=== PATIENT | male | born 1955 | race Caucasian/White ===

== ENCOUNTER 2020-07-19 17:32 | Emergency (ER) | payer OTHER, SELFPAY ==
--- NOTE | 2020-07-19 17:37 | DI.RAD.S_ITS ---
PROCEDURE: XR HAND LT MIN 3V INDICATIONS: part of fish hook stuck under the skin TECHNIQUE: 3 views of the hand(s) acquired. COMPARISON: None. FINDINGS: Bones: No fractures or dislocations. Carpal bones are normally aligned. No suspicious bony lesions. Age-appropriate bony degenerative changes are seen. Soft tissues: No suspicious soft tissue calcifications. There is a broken fishhook seen in the interspace between the 1st and 2nd metacarpals, measuring at least 8 mm. IMPRESSION: Broken fishhook seen within the interspace between the 1st and 2nd metacarpals. Dictated by: Abram Pizarro M.D. on 07/19/2020 at 16:53 Approved by: Abram Pizarro M.D. on 07/19/2020 at 16:54
[2020-07-19 17:39] VITALS: BP 155/89; PULSE 76; RESP 18; TEMP 36.9; O2SAT 96; BMI 26.1
--- NOTE | 2020-07-19 18:12 | ED.GENADULT ---
HPI - General Adult General Chief complaint: Extremity Injury, Upper Stated complaint: fishhook in hand Time Seen by Provider: 07/19/20 17:34 Source: patient and family Mode of arrival: Ambulatory Limitations: no limitations History of Present Illness HPI narrative: Patient is a 64-year-old male here for evaluation of a fishhook in his left hand. Patient states he was fishing earlier today when he had a fish on the line and as he was trying to remove the hook from the fissures mouth it flopped around and the other hooks on the lower came back and got caught in his hand. He was able to remove 1 of the hooks. He used a pair of wire cutters to cut the other fishhook off however he stated that then went into his hand and he was unable to remove it. Related Data Allergies Allergy/AdvReac Type Severity Reaction Status Date / Time No Known Drug Allergies Allergy Verified 07/19/20 17:39 Review of Systems Musculoskeletal Comments: [place] in left hand Integumentary/Breasts Comments: Puncture wound left hand Neurologic Neurologic: Reports system reviewed and no additional complaints, except as documented Hematologic/Lymphatic On Anticoagulants: No Patient History Medical History Healthy adult Social History Smoking Status: Never smoker Smoking Status: Never smoker alcohol intake frequency: a few times a month Substance Use Type: does not use Exam Initial Vital Signs Initial Vital Signs: Vital Signs Temperature 98.5 F 07/19/20 17:39 Pulse Rate 76 07/19/20 17:39 Respiratory Rate 18 07/19/20 17:39 Blood Pressure 155/89 H 07/19/20 17:39 Pulse Oximetry 96 07/19/20 17:39 HENPR Head: normal to inspection and normocephalic Cardio Pulses: radial pulses present on the left Skin Other: Patient with a small puncture wound in the soft tissue of the left hand between the thumb and index finger. Neuro General: patient alert and patient awake Extrem General: normal to inspection and capillary refill normal Psych Appearance: grossly normal and well kempt Procedures Foreign Body OTHER Time Out Performed: yes Site: left and hand Description of foreign body: fish hook Sedation/Analgesia: none and other (Buffered lidocaine) Technique: manual removal and incision made to facilitate removal Confirmed by:: direct visualization Complications: none Post-procedure exam: awake, alert Neurovascular: normal distal pulse and normal capillary fill Course Orders Ordered: ED Orders 07/19/20 17:37 XR hand LT min 3V Stat Discontinued Medications Bacitracin (Bacitracin Oint 0.9 Gm Pckt) 1 applic TOP NOW ONE Stop: 07/19/20 18:38 Last Admin: 07/19/20 18:40 Dose: 1 applic Documented by: MAGUE Lidocaine/Sodium Bicarbonate (Lido 1%/Sod Bicarb 8.4% (10ml) 10 Ml Syringe) 10 ml INJ NOW ONE Stop: 07/19/20 18:11 Last Admin: 07/19/20 18:15 Dose: 10 ml Documented by: MAGUE Vital Signs Vital signs: Vital Signs - 8 hr 07/19/20 17:39 Temperature 98.5 F Pulse Rate 76 Respiratory Rate 18 Blood Pressure 155/89 H Pulse Oximetry 96 Medical Decision Making Imaging Data Extremity x-ray #1: Radiologist's Impression: [address] [id number] ReportSigned Patient: Junior MckinleyMR#: [id number]: [id number]:[id number]/Sex: 64 / MDate of Service: 07/19/20Loc: EDAccession Number: [id number] Procedure: XR hand LT min 3V Ordering Provider: Adalberto Lama D.O. PROCEDURE: XR HAND LT MIN 3V INDICATIONS: part of fish hook stuck under the skin TECHNIQUE: 3 views of the hand(s) acquired. COMPARISON: None. FINDINGS: Bones: No fractures or dislocations. Carpal bones are normally aligned. No suspicious bony lesions. Age-appropriate bony degenerative changes are seen. Soft tissues: No suspicious soft tissue calcifications. There is a broken fishhook seen in the interspace between the 1st and 2nd metacarpals, measuring at least 8 mm. IMPRESSION: Broken fishhook seen within the interspace between the 1st and 2nd metacarpals. Dictated by: Abram Pizarro M.D. on 07/19/2020 at 16:53 Approved by: Abram Pizarro M.D. on 07/19/2020 at 16:54 [facility] Narrative Medical decision making narrative: Fish hook was easily removed after local anesthesia. It was removed intact. Will hold on any antibiotics. He was given care instructions and return precautions. He expressed understanding and agreement. Discharge Plan Departure Patient Disposition: Home Clinical Impression: Foreign body hand Activity Restrictions/Additional Instructions: You can keep the area covered with a antibiotic ointment and also at bandage. You can wash your hands like normal but I recommend do not soak your hand anything until the wound heals. Contact your primary provider for follow-up. Return to the emergency department for any new or worsening symptoms Referrals: London Chávez MD [Primary Care Provider] -
[2020-07-19] MEDS: LIDO 1%/SOD BICARB 8.4% (10ML) 10 ML SYRINGE INJ (18:15)
[2020-07-19] MEDS: BACITRACIN OINT 0.9 GM PCKT 1 APPLIC TOP (18:40)
--- NOTE | 2020-07-19 18:44 | PC.NURSE ---
wound cleansed with saline, bacitracin to site, gauze and bandaid
== END 2020-07-19 18:45 | disposition home or self-care (01) ==
PROVIDERS: Emergency Provider Emergency Medicine; PCP Internal Medicine
DX: S61.442A Puncture wound with foreign body of left hand, initial encounter (principal); W45.8XXA Other foreign body or object entering through skin, initial encounter
CPT/HCPCS: 10120; 73130; 99283